=== PATIENT | female | born 1980 | race Caucasian/White ===

== ENCOUNTER 2019-03-05 06:09 | Inpatient (IN) | payer OTHER ==
[2019-03-05] MEDS ORDERED: DEXTROSE 5%-LR 1,000 ML IV ×2 (06:44→12:41)
[2019-03-05] MEDS ORDERED: BUTORPHANOL 2 MG INJ IV (07:00)
[2019-03-05] MEDS ORDERED: OXYTOCIN 30 UNITS/LR 500 ML IV ×2 (07:00→13:00)
[2019-03-05] MEDS ORDERED: IBUPROFEN 600 MG TAB PO (07:00)
[2019-03-05] MEDS ORDERED: CARBOPROST 250 MCG INJ IM ×2 (07:00→13:00)
[2019-03-05] MEDS: AMPICILLIN 2 GM/NS (PMX) 100 ML IV (07:10)
[2019-03-05] MEDS: LACTATED RINGER'S 1,000 ML IV (07:10)
[2019-03-05] MEDS: MINERAL OIL LIGHT 10 ML VIAL TOP (10:45)
[2019-03-05] MEDS: MISOPROSTOL 200 MCG TAB PR (10:51)
[2019-03-05] MEDS: METHYLERGONOVINE 0.2 MG INJ IM (10:51)
[2019-03-05] MEDS: OXYTOCIN 30 UNITS/LR 500 ML IV ×3 (10:54→14:59)
[2019-03-05] MEDS ORDERED: AMPICILLIN 1 GM/NS (PMX) 50 ML IV (11:00)
[2019-03-05] MEDS: LIDOCAINE 1% (MPF) 30 ML INJ INJ (11:53)
[2019-03-05] MEDS: LACTATED RINGER'S 1,000 ML IV* (12:41)
[2019-03-05] MEDS ORDERED: ONDANSETRON 4 MG INJ IV (13:00)
[2019-03-05] MEDS ORDERED: MISOPROSTOL 200 MCG TAB PR (13:00)
[2019-03-05] MEDS ORDERED: ZOLPIDEM 5 MG TAB PO (13:00)
[2019-03-05] MEDS ORDERED: DIPHENHYDRAMINE 50 MG INJ IV (13:00)
[2019-03-05] MEDS ORDERED: METHYLERGONOVINE 0.2 MG INJ IM (13:00)
[2019-03-05] MEDS ORDERED: DIBUCAINE 1% 30 GM OINT TOP (13:00)
[2019-03-05] MEDS ORDERED: ACETAMINOPHEN 325 MG TAB PO (13:00)
[2019-03-05] MEDS: LANOLIN HPA 1 PKT TOP (13:52)
[2019-03-05] MEDS: BENZOCAINE 20% 56 ML SPRAY TOP (13:52)
[2019-03-05] MEDS: WITCH HAZEL/GLYCERIN PAD PR (13:52)
[2019-03-05] MEDS: IBUPROFEN 600 MG TAB PO ×2 (17:50→23:41)
[2019-03-05] MEDS: SENNA/DOCUSATE NA (8.6MG/50MG) TAB PO (20:41)
[2019-03-06] MEDS: IBUPROFEN 600 MG TAB PO ×3 (05:35→18:23)
[2019-03-06] MEDS: SENNA/DOCUSATE NA (8.6MG/50MG) TAB PO (21:37)
[2019-03-07] MEDS: IBUPROFEN 600 MG TAB PO ×4 (05:59→18:16)
[2019-03-07] MEDS: MEASLES,MUMPS,RUBELLA VACCINE INJ SC* (09:00)
[2019-03-07] MEDS: DIPHTH/TET/ACEL PERTUSS (ADULT) 0.5 ML VIAL IM* (10:59)
== END 2019-03-07 20:16 | disposition home or self-care (01) | DRG 768 ==
LOC: OBT 06:09 → L-D 06:11 → OBT 06:42 → L-D 06:42 → PP1 12:49
PROC: 10E0XZZ Delivery of Products of Conception, External Approach (ICD-10-PCS; principal; 2019-03-05)
PROC: 0DQR0ZZ Repair Anal Sphincter, Open Approach (ICD-10-PCS; 2019-03-05)
DX: O24.429 Gestational diabetes mellitus in childbirth, unspecified control (principal); Z37.0 Single live birth; O70.20 Third degree perineal laceration during delivery, unspecified; O99.824 Streptococcus B carrier state complicating childbirth; Z3A.39 39 weeks gestation of pregnancy; Z23 Encounter for immunization
CPT/HCPCS: 76815; 82947; 85025; 85610; 85730; 86592; 86850; 86900; 86901; 87340; 90715